=== PATIENT | female | born 1955 | race African-American/Black ===

== ENCOUNTER 2022-05-25 16:26 | Emergency (ER) | payer OTHER ==
[~2022-05-25] VITALS: Ht 154.9 cm; Wt 82.0 kg
[2022-05-25 19:51] LABS: EOSINOPHILS % 0.5 % (0.0-5.0); HEMATOCRIT. 44.1 % (36.0-48.0); HEMOGLOBIN. 14.2 g/dL (12.0-16.0); MEAN CORPUSCULAR HEMOGLOBIN 26.2 pg (28.0-32.0); MEAN CORPUSCULAR VOLUME 81.6 fL (81.0-99.0); MEAN PLATELET VOLUME 8.3 fl (7.4-10.4); MONOCYTES % 7.4 % (2.0-8.0); NEUTROPHILS % 59.1 % (40.0-76.0); PLATELET 315 x1000/uL (130-400); RED BLOOD CELL COUNT 5.41 mill/uL (4.2-5.4); RED CELL DISTRIBUTION WIDTH 15.5 % (11.6-14.6)
[2022-05-25 19:58] LABS: CHLORIDE 98 mEq/L (98-107)
[2022-05-25 20:53] VITALS: BP 168/114
== END 2022-05-25 21:20 | disposition home or self-care (01) ==
LOC: ER 16:26
DX: G44.209 Tension-type headache, unspecified, not intractable (principal); G43.909 Migraine, unspecified, not intractable, without status migrainosus; I10 Essential (primary) hypertension; I48.20 Chronic atrial fibrillation, unspecified; R20.0 Anesthesia of skin; Z79.01 Long term (current) use of anticoagulants; Z86.73 Personal history of transient ischemic attack (TIA), and cerebral infarction without residual deficits
CPT/HCPCS: 36415; 80053; 84484; 85025; 93005; 99285

== ENCOUNTER 2022-06-30 20:41 | Inpatient (IN) | payer OTHER ==
[~2022-06-30] VITALS: Ht 162.6 cm; Wt 94.1 kg
[2022-06-30 22:31] LABS: BASOPHILS % 0.7 % (0.0-2.0); HEMATOCRIT. 42.2 % (36.0-48.0); HEMOGLOBIN. 13.7 g/dL (12.0-16.0); LYMPHOCYTES % 29.8 % (20.0-50.0); MEAN CORPUSCULAR HEMOGLOBIN 26.7 pg (28.0-32.0); MEAN CORPUSCULAR VOLUME 82.2 fL (81.0-99.0); MEAN PLATELET VOLUME 8.7 fl (7.4-10.4); MONOCYTES % 10.2 % (2.0-8.0); NEUTROPHILS % 58.3 % (40.0-76.0); PLATELET 283 x1000/uL (130-400); RED BLOOD CELL COUNT 5.14 mill/uL (4.2-5.4); RED CELL DISTRIBUTION WIDTH 15.4 % (11.6-14.6)
[2022-06-30 22:44] LABS: CHLORIDE 103 mEq/L (98-107)
[2022-06-30 22:53] LABS: ETHANOL BLOOD < 10 mg/dL
[2022-06-30 23:44] LABS: *AMPHETAMINES SCREEN URINE NEGATIVE (NEGATIVE); *BARBITURATES SCREEN URINE NEGATIVE (NEGATIVE); *BENZODIAZEPINES SCREEN URINE NEGATIVE (NEGATIVE); *COCAINE SCREEN URINE NEGATIVE (NEGATIVE); CANNABINOID URINE SCREEN NEGATIVE (NEGATIVE); METHADONE URINE SCREEN NEGATIVE (NEGATIVE); OPIATES URINE SCREEN NEGATIVE (NEGATIVE); PHENCYCLIDINE URINE SCREEN NEGATIVE (NEGATIVE)
[2022-07-01 14:36] VITALS: BP 219/143
[2022-07-01] MEDS ORDERED: AMLO5TAB88 MT (14:45)
[2022-07-01] MEDS ORDERED: LOSA1TAB40 MT (14:45)
[2022-07-01] MEDS ORDERED: METO-539 MT (14:46)
[2022-07-01 14:50] VITALS: BP 181/119
[2022-07-01] MEDS ORDERED: HYDRALAZINE 20MG/ML VIAL IV NR (16:00)
[2022-07-01 20:00] VITALS: BP 162/105
[2022-07-01] MEDS: HYDRALAZINE 20MG/ML VIAL IV PRN (20:23)
[2022-07-01 22:32] LABS: BG BASE EXCESS 4.8 mmol/L (-2.0-2.0); BG CARBOXYHEMOGLOBIN 0.5 % (0.5-1.5); BG DEOXYHEMOGLOBIN 2.5 % (0.0-5.0); BG FRACTION INSPIRED OXYGEN 21; BG HCO3 ACT 26.9 mmol/L (22.0-26.0); BG METHEMOGLOBIN 0.1 % (0.0-1.5); BG OXYGEN SATURATION 97.5 % (92.0-98.5); BG OXYHEMOGLOBIN 96.9 % (94.0-97.0); BG PCO2 32.4 mmHg (35.0-45.0); BG PH 7.537 (7.350-7.450); BG PO2 93.4 mmHg (75.0-100.0); BG SAMPLE SITE RIGHT RADIAL; BG TOTAL HEMOGLOBIN 14.7 g/dL (12.0-18.0); BG VENT MODE ROOM AIR
[2022-07-01] MEDS ORDERED: ASPIRIN 300MG SUPP PR NR (23:30)
[2022-07-02] VITALS: BP 167/107
[2022-07-02 08:04] VITALS: BP 160/112
[2022-07-02] MEDS ORDERED: IOHEXOL-350 100 ML BOTTLE ONE (09:02)
[2022-07-02] MEDS: ASPIRIN 81MG TABLET PO SCH (09:48)
[2022-07-02] MEDS: CLOPIDOGREL 75MG TABLET PO SCH (09:49)
[2022-07-02 12:00] VITALS: BP 161/114
[2022-07-02] MEDS: DILTIAZEM HCL 60MG TABLET PO SCH ×2 (13:50→21:35)
[2022-07-02] MEDS ORDERED: ACETAMINOPHEN 325MG TABLET PO PRN (14:00)
[2022-07-02] MEDS ORDERED: ENOXAPARIN 120MG/0.8ML SYR SUBCUT SCH (15:00)
[2022-07-02 16:00] VITALS: BP 148/91
[2022-07-02 20:00] VITALS: BP 179/107
[2022-07-02] MEDS ORDERED: ATORVASTATIN CALCIUM 40MG TABLET PO SCH (21:00)
[2022-07-02 21:01] LABS: INR 1.1; PROTHROMBIN TIME 11.9 sec (9.6-11.0)
[2022-07-02] MEDS: ATORVASTATIN CALCIUM 40MG TABLET PO SCH (21:36)
[2022-07-03] VITALS: BP 146/77
[2022-07-03 04:00] VITALS: BP 147/66
[2022-07-03] MEDS: DILTIAZEM HCL 60MG TABLET PO SCH ×3 (06:22→21:39)
[2022-07-03 07:57] LABS: INR 1.1; PROTHROMBIN TIME 11.4 sec (9.6-11.0)
[2022-07-03 08:00] VITALS: BP 145/90
[2022-07-03] MEDS: ASPIRIN 81MG TABLET PO SCH (08:44)
[2022-07-03] MEDS: CLOPIDOGREL 75MG TABLET PO SCH (08:45)
[2022-07-03] MEDS ORDERED: ENOXAPARIN 120MG/0.8ML SYR SUBCUT SCH (09:00)
[2022-07-03 12:00] VITALS: BP 157/97
[2022-07-03] MEDS: HYDRALAZINE 20MG/ML VIAL IV PRN (13:19)
[2022-07-03 16:00] VITALS: BP 128/66
[2022-07-03] MEDS ORDERED: DILTIAZEM HCL 5MG/ML 5ML VIAL IV NR (16:00)
[2022-07-03 20:00] VITALS: BP 146/96
[2022-07-03] MEDS: ATORVASTATIN CALCIUM 40MG TABLET PO SCH (21:38)
[2022-07-03] MEDS: METOPROLOL TARTRATE 50MG TABLET PO SCH (21:40)
[2022-07-03] MEDS: ENOXAPARIN 100MG/ML SYR SUBCUT SCH (21:41)
[2022-07-04] VITALS: BP 132/95
[2022-07-04 04:00] VITALS: BP 130/95
[2022-07-04] MEDS: DILTIAZEM HCL 60MG TABLET PO SCH ×3 (06:12→22:05)
[2022-07-04 08:00] VITALS: BP 158/114
[2022-07-04] MEDS: CLOPIDOGREL 75MG TABLET PO SCH (08:49)
[2022-07-04] MEDS: ASPIRIN 81MG TABLET PO SCH (08:49)
[2022-07-04] MEDS: METOPROLOL TARTRATE 50MG TABLET PO SCH ×2 (08:50→22:05)
[2022-07-04] MEDS: ENOXAPARIN 100MG/ML SYR SUBCUT SCH ×2 (08:50→22:06)
[2022-07-04 12:00] VITALS: BP 132/76
[2022-07-04 15:45] LABS: BASOPHILS % 0.4 % (0.0-2.0); EOSINOPHILS % 0.3 % (0.0-5.0); HEMATOCRIT. 41.9 % (36.0-48.0); HEMOGLOBIN. 13.4 g/dL (12.0-16.0); LYMPHOCYTES % 15.3 % (20.0-50.0); MEAN CORPUSCULAR HEMOGLOBIN 26.6 pg (28.0-32.0); MEAN CORPUSCULAR VOLUME 83.4 fL (81.0-99.0); MEAN PLATELET VOLUME 8.5 fl (7.4-10.4); PLATELET 267 x1000/uL (130-400); RED BLOOD CELL COUNT 5.03 mill/uL (4.2-5.4); RED CELL DISTRIBUTION WIDTH 15.6 % (11.6-14.6)
[2022-07-04 16:00] VITALS: BP 158/107
[2022-07-04 16:23] LABS: CHLORIDE 106 mEq/L (98-107)
[2022-07-04] MEDS: HYDRALAZINE 20MG/ML VIAL IV PRN (19:04)
[2022-07-04 20:00] VITALS: BP 148/97
[2022-07-04] MEDS: ATORVASTATIN CALCIUM 40MG TABLET PO SCH (22:01)
[2022-07-05] VITALS: BP 135/78
[2022-07-05 04:00] VITALS: BP 142/79
[2022-07-05] MEDS: DILTIAZEM HCL 60MG TABLET PO SCH ×2 (06:00→15:31)
[2022-07-05 07:00] LABS: BASOPHILS % 0.8 % (0.0-2.0); EOSINOPHILS % 0.2 % (0.0-5.0); HEMATOCRIT. 41.3 % (36.0-48.0); HEMOGLOBIN. 13.1 g/dL (12.0-16.0); LYMPHOCYTES % 17.5 % (20.0-50.0); MEAN CORPUSCULAR HEMOGLOBIN 26.8 pg (28.0-32.0); MEAN CORPUSCULAR VOLUME 84.7 fL (81.0-99.0); MEAN PLATELET VOLUME 8.7 fl (7.4-10.4); MONOCYTES % 8.2 % (2.0-8.0); NEUTROPHILS % 73.3 % (40.0-76.0); PLATELET 251 x1000/uL (130-400); RED BLOOD CELL COUNT 4.87 mill/uL (4.2-5.4); RED CELL DISTRIBUTION WIDTH 15.7 % (11.6-14.6)
[2022-07-05 07:17] LABS: CHLORIDE 107 mEq/L (98-107)
[2022-07-05 08:00] VITALS: BP 151/107
[2022-07-05] MEDS: ENOXAPARIN 100MG/ML SYR SUBCUT SCH ×2 (09:34→21:45)
[2022-07-05] MEDS: CLOPIDOGREL 75MG TABLET PO SCH (09:34)
[2022-07-05] MEDS: ASPIRIN 81MG TABLET PO SCH (09:34)
[2022-07-05] MEDS: METOPROLOL TARTRATE 50MG TABLET PO SCH (09:34)
[2022-07-05] MEDS ORDERED: BISACODYL 10MG SUPP PR PRN (10:15)
[2022-07-05] MEDS ORDERED: DILTIAZEM HCL 5MG/ML 5ML VIAL IV NR (10:30)
[2022-07-05 12:00] VITALS: BP 152/103
[2022-07-05] MEDS: MEGESTROL ACETATE 400 MG/10 ML UDC PO SCH (13:02)
[2022-07-05] MEDS: DOCUSATE SODIUM 250MG CAPSULE PO SCH (13:02)
[2022-07-05 16:00] VITALS: BP 161/133
[2022-07-05 20:00] VITALS: BP 195/139
[2022-07-05] MEDS: ATORVASTATIN CALCIUM 40MG TABLET PO SCH (21:00)
[2022-07-05] MEDS ORDERED: SENNOSIDES 8.6MG TABLET PO SCH (21:00)
[2022-07-05] MEDS: METOPROLOL TARTRATE 100MG TABLET PO SCH (21:57)
[2022-07-06] VITALS (7 sets, daily range): BP systolic 153–198; BP diastolic 94–123
[2022-07-06] MEDS: METOPROLOL TARTRATE 100MG TABLET PO SCH ×2 (06:00→12:58)
[2022-07-06 07:18] LABS: INR 1.1; PROTHROMBIN TIME 11.8 sec (9.6-11.0)
[2022-07-06 07:24] LABS: BASOPHILS % 0.6 % (0.0-2.0); EOSINOPHILS % 0.5 % (0.0-5.0); HEMATOCRIT. 41.6 % (36.0-48.0); HEMOGLOBIN. 13.4 g/dL (12.0-16.0); LYMPHOCYTES % 19.4 % (20.0-50.0); MEAN CORPUSCULAR HEMOGLOBIN 26.6 pg (28.0-32.0); MEAN CORPUSCULAR VOLUME 82.8 fL (81.0-99.0); MEAN PLATELET VOLUME 9.2 fl (7.4-10.4); MONOCYTES % 8.9 % (2.0-8.0); NEUTROPHILS % 70.6 % (40.0-76.0); PLATELET 263 x1000/uL (130-400); RED BLOOD CELL COUNT 5.02 mill/uL (4.2-5.4)
[2022-07-06 07:29] LABS: CHLORIDE 107 mEq/L (98-107)
[2022-07-06] MEDS: MEGESTROL ACETATE 400 MG/10 ML UDC PO SCH (08:49)
[2022-07-06] MEDS: DOCUSATE SODIUM 250MG CAPSULE PO SCH (08:49)
[2022-07-06] MEDS: ENOXAPARIN 100MG/ML SYR SUBCUT SCH ×2 (08:49→21:55)
[2022-07-06] MEDS ORDERED: LISINOPRIL 20MG TABLET PO SCH (21:15)
[2022-07-06] MEDS ORDERED: CHLORTHALIDONE 25MG TABLET PO SCH (21:15)
[2022-07-06] MEDS ORDERED: METOPROLOL TARTRATE 100MG TABLET PO SCH (21:15)
[2022-07-06] MEDS: ATORVASTATIN CALCIUM 40MG TABLET PO SCH (21:37)
[2022-07-06] MEDS ORDERED: DILTIAZEM HCL 60MG TABLET PO SCH (22:00)
[2022-07-07] VITALS: BP 148/98
[2022-07-07 00:36] VITALS: BP 160/92
== END 2022-07-07 03:53 | disposition short-term general hospital (02) | DRG 65 ==
LOC: ER 20:41 → MICUSO 07-01 04:19 → 3WST 07-01 14:51
PROVIDERS: ADMIT Internal Medicine; ATTEND Internal Medicine
DX: I63.9 Cerebral infarction, unspecified (principal); G81.94 Hemiplegia, unspecified affecting left nondominant side; I10 Essential (primary) hypertension; I48.91 Unspecified atrial fibrillation; Z20.822 Contact with and (suspected) exposure to COVID-19; E11.9 Type 2 diabetes mellitus without complications; E66.01 Morbid (severe) obesity due to excess calories; E78.00 Pure hypercholesterolemia, unspecified; E78.5 Hyperlipidemia, unspecified; R47.1 Dysarthria and anarthria; Z68.35 Body mass index [BMI] 35.0-35.9, adult
CPT/HCPCS: 36415; 36600; 70496; 70498; 70551; 71045; 80048; 80053; 80061; 80305; 80320; 82375; 82805; 83036; 83880; 84443; 84484; 85025; 87426; 92610; 93005; 93306; 97162; 97166; 97530; 99285; C9803; J0360; J1650; J3490; Q9967; G0480

== ENCOUNTER 2023-03-09 11:09 | Emergency (ER) | payer OTHER ==
[~2023-03-09] VITALS: Ht 152.4 cm; Wt 73.0 kg
[~2023-03-09 11:09] MED LIST: AMLO5TAB88 MT; LOSA1TAB40 MT; METO-539 MT
[2023-03-09 11:17] VITALS: O2SAT 98
[2023-03-09] MEDS ORDERED: ACETAMINOPHEN 325MG TABLET PO ONE (12:45)
[2023-03-09] MEDS ORDERED: TOPUD MT (14:20)
[2023-03-09 15:02] VITALS: BP 120/76; PULSE 77; RESP 17; TEMP 97.7
== END 2023-03-09 15:04 | disposition home or self-care (01) ==
LOC: ER 11:09
DX: R51.9 Headache, unspecified (principal); E11.9 Type 2 diabetes mellitus without complications; I10 Essential (primary) hypertension; Z86.73 Personal history of transient ischemic attack (TIA), and cerebral infarction without residual deficits
CPT/HCPCS: 99284